=== PATIENT | male | born 1945 | race Caucasian/White ===

== ENCOUNTER 2018-03-15 07:45 | Day surgery (SDC) | payer OTHER ==
[~2018-03-15 07:45] MED LIST: AVAPRO150 MG PO; AVAPRO300 MG; KETO10TA2 PO
== END 2018-03-15 13:00 | disposition home or self-care (01) ==
LOC: CIR.AMB 07:45
DX: N20.1 Calculus of ureter (principal)

== ENCOUNTER 2019-01-12 12:49 | Emergency (ER) | payer OTHER ==
[~2019-01-12] VITALS: Ht 180.3 cm; Wt 89.4 kg
== END 2019-01-12 17:31 | disposition home or self-care (01) ==
LOC: ER 12:49
DX: J40 Bronchitis, not specified as acute or chronic (principal); B34.9 Viral infection, unspecified; J11.1 Influenza due to unidentified influenza virus with other respiratory manifestations

== ENCOUNTER 2020-10-21 06:18 | Emergency (ER) | payer OTHER ==
[~2020-10-21] VITALS: Ht 180.3 cm; Wt 88.5 kg
[2020-10-21] MEDS ORDERED: COZAAR25 MG (06:31)
[2020-10-21] MEDS ORDERED: CELECOXIB100 MG PO (11:47)
[2020-10-21] MEDS ORDERED: ORPHENADRINE C100 MG PO (11:47)
== END 2020-10-21 12:00 | disposition home or self-care (01) ==
LOC: ER 06:18
DX: B34.9 Viral infection, unspecified (principal); M54.2 Cervicalgia; M62.838 Other muscle spasm; R50.9 Fever, unspecified; Z03.818 Encounter for observation for suspected exposure to other biological agents ruled out; R07.89 Other chest pain